=== PATIENT | male | born 1955 | race Caucasian/White ===

== ENCOUNTER 2018-08-08 14:59 | Emergency (ER) | payer OTHER ==
[~2018-08-08] VITALS: Ht 182.9 cm; Wt 88.5 kg
[2018-08-08 15:14] VITALS: BP 104/78
--- NOTE | 2018-08-08 15:35 | NUR ---
Patient discharged to home in stable condition. Written and verbal after care instructions given. Patient verbalizes understanding of instruction.
== END 2018-08-08 15:37 | disposition home or self-care (01) ==
LOC: ER 15:02
DX: T50.905A Adverse effect of unspecified drugs, medicaments and biological substances, initial encounter (principal); F41.9 Anxiety disorder, unspecified; F32.9 Major depressive disorder, single episode, unspecified; Z95.818 Presence of other cardiac implants and grafts; Z60.2 Problems related to living alone; Y92.89 Other specified places as the place of occurrence of the external cause
CPT/HCPCS: Z7502

== ENCOUNTER 2018-12-01 22:41 | Emergency (ER) | payer OTHER ==
[~2018-12-01] VITALS: Ht 175.3 cm; Wt 83.0 kg
--- NOTE | 2018-12-01 22:50 | NUR ---
BIB RA, AA/OX4 C/C SYNCOPAL EPISODE WHILE USING THE BATHROOM. PAIN ON TO LIP. SMALL LACERATION TO TOP LIP WITH MINOR SWELLING. ALL OTHER SKIN PINK, WARM, DRY. VSS. NAD. WILL CONTINUE TO MONITOR.
[2018-12-01] MEDS ORDERED: IV NS 0.9% 1,000 ML BAG IV ONE (23:00)
[2018-12-01 23:14] LABS: BASOPHILS % (AUTO) 0.2 % (0.0-2.0); EOSINOPHILS % (AUTO) 14.8 % (0.0-6.0); HEMATOCRIT 39 % (39-51); HEMOGLOBIN 13.7 g/dL (13.5-17.5); LYMPHOCYTES # (AUTO) 0.4 /CMM (0.8-4.8); MEAN CORPUSCULAR HGB CONC 35 g/dl (31.0-36.0); MEAN CORPUSCULAR VOLUME 90 fL (80-96); MONOCYTES # (AUTO) 0.4 /CMM (0.1-1.30); MONOCYTES % (AUTO) 7.8 % (2.0-12.0); NEUTROPHILS # (AUTO) 3.7 /CMM (1.8-8.9); NEUTROPHILS % (AUTO) 69.2 % (43.0-81.0); PLATELET COUNT (AUTO) 230 /CMM (150-450); RED BLOOD CELL COUNT(AUTO) 4.33 MIL/uL (4.5-6.0); WHITE BLOOD COUNT (AUTO) 5.3 K/uL (4.3-11.0)
[2018-12-01 23:24] LABS: CALCIUM, SERUM 8.8 mg/dL (8.5-10.1); CARBON DIOXIDE 24 mmol/L (21-32); CHLORIDE 101 mmol/L (98-107); CREATININE 1.4 mg/dL (0.6-1.3); GLUCOSE 128 mg/dL (74-106); POTASSIUM 3.7 mmol/L (3.5-5.1); SODIUM SERUM 135 mmol/L (136-145); UREA NITROGEN, BLOOD 9 mg/dL (7-18)
--- NOTE | 2018-12-01 23:36 | NUR ---
Patient is resting comfortably in bed with eyes closed. Easily aroused. VSS. NAD
[2018-12-01 23:40] LABS: ALANINE AMINOTRANSFERASE 21 U/L (12-78); ALBUMIN 3.3 g/dL (3.4-5.0); ALKALINE PHOSPHATASE 64 U/L (46-116); ASPARTATE AMINOTRANSFERASE 17 U/L (15-37); BILIRUBIN,DIRECT 0.3 mg/dL (0.0-0.2); BILIRUBIN,TOTAL 1.3 mg/dL (0.2-1.0); TOTAL PROTEIN, SERUM 6.5 g/dL (6.4-8.2)
--- NOTE | 2018-12-02 00:35 | NUR ---
PT SITTING UP DRINKING WATER. VSS. NAD.
[2018-12-02] MEDS ORDERED: ALPRAZOLAM 0.5 MG TABLET ONE (00:43)
[2018-12-02] MEDS ORDERED: IV NS 0.9% 1,000 ML BAG IV ONE (01:00)
[2018-12-02] MEDS ORDERED: ALPRAZOLAM 0.5 MG TABLET PO ONE (01:00)
--- NOTE | 2018-12-02 01:31 | NUR ---
AMBULATED TO BATHROOM WITH STABLE GAIT. VSS. NAD.
--- NOTE | 2018-12-02 02:37 | NUR ---
PT AMBULATED TO BATHROOM WITH STABLE GAIT. NAD. VSS.
--- NOTE | 2018-12-02 03:00 | NUR ---
PT ACCEPTED TO [facility] BY DHAVAL WHITE. # FOR REPORT [phone]. ROOM 202-B. PENDING TRANSPORT ETA.
--- NOTE | 2018-12-02 03:22 | NUR ---
REPORT GIVEN TO [facility] KELL DUMONT
[2018-12-02 03:29] VITALS: BP 110/70
--- NOTE | 2018-12-02 03:46 | NUR ---
REPORT GIVEN TO AMBULANCE COMPANY. PT LOADED ON AMB GURNEY AND TRANSPORTED TO [facility] WITH STABLE CONDITION. NAD. MENDES.
[2018-12-05] MEDS ORDERED: METO-356 PO (17:25)
[2018-12-05] MEDS ORDERED: ASPI-1395 PO (17:25)
== END 2018-12-02 03:51 | disposition short-term general hospital (02) ==
LOC: ER 22:45
DX: S00.83XA Contusion of other part of head, initial encounter (principal); C20 Malignant neoplasm of rectum; R55 Syncope and collapse; F41.9 Anxiety disorder, unspecified; F32.9 Major depressive disorder, single episode, unspecified; Z95.818 Presence of other cardiac implants and grafts; Z60.2 Problems related to living alone; X58.XXXA Exposure to other specified factors, initial encounter; Y93.89 Activity, other specified; Y92.89 Other specified places as the place of occurrence of the external cause; Y99.8 Other external cause status
CPT/HCPCS: 36415; 71045; 80048; 80076; 84484; 85025; 85730; 87081; 93005; 96360; 96361; 99285; J7030 ×2

== ENCOUNTER 2018-12-05 15:03 | Emergency (ER) | payer OTHER ==
[~2018-12-05] VITALS: Ht 175.3 cm; Wt 80.3 kg
--- NOTE | 2018-12-05 15:15 | NUR ---
RAMILA DE LA PAZ FRM HOME TO ER BED 10 C/O 2 DAYS OF DIFFUSE ABDOMINAL PAIN. HX OF COLON CA. 12/05 PAIN. PLACED ON MONITOR. AWAITING MD DRAPER.
--- NOTE | 2018-12-05 15:17 | NUR ---
DR MCGILL AT BEDSIDE FOR EVAL.
--- NOTE | 2018-12-05 15:24 | NUR ---
Jose palma in [facility] - 12/05/18 [address] MCGILL AT [facility].
[2018-12-05] MEDS ORDERED: HYDROMORPHONE INJ 2 MG/ML DISP.SYRIN IV ONE (15:30)
[2018-12-05] MEDS ORDERED: ONDANSETRON HCL/PF 4 MG/2 ML VIAL IVP ONE (15:30)
--- NOTE | 2018-12-05 15:30 | NUR ---
IV LINE STARTED BLOOD DRAWN AND SENT TO LAB.
[2018-12-05 15:36] LABS: BASOPHILS % (AUTO) 0.2 % (0.0-2.0); EOSINOPHILS % (AUTO) 1.6 % (0.0-6.0); HEMATOCRIT 35 % (39-51); HEMOGLOBIN 12.3 g/dL (13.5-17.5); LYMPHOCYTES # (AUTO) 0.5 /CMM (0.8-4.8); LYMPHOCYTES % (AUTO) 8.1 % (20.0-44.0); MEAN CORPUSCULAR HGB CONC 36 g/dl (31.0-36.0); MEAN CORPUSCULAR VOLUME 88 fL (80-96); MONOCYTES # (AUTO) 1.5 /CMM (0.1-1.30); MONOCYTES % (AUTO) 23.9 % (2.0-12.0); NEUTROPHILS # (AUTO) 4.3 /CMM (1.8-8.9); NEUTROPHILS % (AUTO) 66.2 % (43.0-81.0); PLATELET COUNT (AUTO) 218 /CMM (150-450); RED BLOOD CELL COUNT(AUTO) 3.93 MIL/uL (4.5-6.0); WHITE BLOOD COUNT (AUTO) 6.4 K/uL (4.3-11.0)
--- NOTE | 2018-12-05 15:44 | NUR ---
PT TO RADIOLOGY FOR ABDOMINAL CT SCAN VIA [facility].
[2018-12-05 15:49] LABS: ALBUMIN 2.6 g/dL (3.4-5.0); BILIRUBIN,DIRECT 0.4 mg/dL (0.0-0.2); BILIRUBIN,TOTAL 1.3 mg/dL (0.2-1.0); CALCIUM, SERUM 8.3 mg/dL (8.5-10.1); CREATININE 1.4 mg/dL (0.6-1.3); TOTAL PROTEIN, SERUM 5.9 g/dL (6.4-8.2)
[2018-12-05 15:51] LABS: POTASSIUM 2.6 mmol/L (3.5-5.1)
[2018-12-05] MEDS ORDERED: HYDROMORPHONE 1 MG/1 ML DISP.SYRIN ONE ×2 (15:53→17:57)
[2018-12-05] MEDS ORDERED: ONDANSETRON HCL/PF 4 MG/2 ML VIAL ONE (15:53)
[2018-12-05] MEDS ORDERED: IV NS 0.9% 1,000 ML BAG IV ONE (16:00)
[2018-12-05] MEDS ORDERED: POTASSIUM CHLORIDE 20 MEQ TAB.PRT.SR PO ONE ×2 (16:00→16:46)
[2018-12-05] MEDS ORDERED: POTASSIUM CHLORIDE 10 MEQ/50 ML PREMIXED IVPB FOR PERIPHERAL LINE IV ONE (16:00)
[2018-12-05] MEDS ORDERED: LIDOCAINE 2% JEL UROJET 10 ML MM ONE (16:07)
[2018-12-05 16:34] LABS: APPEARANCE,URINE Clear (CLEAR); BILIRUBIN,URINE Negative (NEGATIVE); BLOOD, URINE Negative Ery/uL (NEGATIVE); COLOR,URINE Dark (YELLOW); KETONES,URINE Negative (NEGATIVE); LEUKOCYTE ESTERASE ,URINE Negative (NEGATIVE); NITRITE, URINE Negative (NEGATIVE); PROTEIN,URINE Trace mg/dl (NEGATIVE); UGLUCOSE Negative (NEGATIVE); UROBILINOGEN,URINE 0.2 EU/dL (0.2)
[2018-12-05] MEDS ORDERED: POTASSIUM CL. PREMIX PERIPHER. 50 ML ONE (16:45)
[2018-12-05] MEDS ORDERED: TAMSULOSIN 0.4 MG CAP.SR.24H PO ONE (17:00)
[2018-12-05] MEDS ORDERED: HYDROMORPHONE 1 MG/1 ML DISP.SYRIN IV ONE (17:00)
[2018-12-05] MEDS ORDERED: PIPERACILLIN /TAZOBACTAM 3.375 G in IV D5W 50 ML IV ONE (17:00)
[2018-12-05 17:02] LABS: BACTERIA,URINE Rare /HPF (None Seen); RBC,URINE NONE SEEN /HPF (0-2); SQUAMOUS EPITHELIAL CELL,UR Rare /HPF (None Seen)
[2018-12-05 17:03] LABS: WBC,URINE 0-3 /HPF (0-3)
[2018-12-05] MEDS ORDERED: TAMSULOSIN 0.4 MG CAP.SR.24H ONE (17:07)
[2018-12-05 17:17] LABS: BAND % (MANUAL) 11 % (0.0-5.0); EOSINOPHILS % (MANUAL) 4 % (0-4); LYMPHOCYTES % (MANUAL) 1 % (16-48); MONOCYTES % (MANUAL) 13 % (0-11.0); NEUTROPHILS % (MANUAL) 71 (42-76)
[2018-12-05] MEDS ORDERED: PROC10TA29 PO (17:25)
[2018-12-05] MEDS ORDERED: ALPR0.5T8 PO (17:25)
[2018-12-05] MEDS ORDERED: FAMO20TA8 PO (17:25)
[2018-12-05] MEDS ORDERED: METO25TA4 PO (17:25)
[2018-12-05] MEDS ORDERED: ASPI-1498 PO (17:25)
[2018-12-05] MEDS ORDERED: RAMI5CAP66 PO (17:25)
[2018-12-05] MEDS ORDERED: FLUO40CA49 PO (17:25)
[2018-12-05] MEDS ORDERED: ONDA4TAB10 PO (17:25)
[2018-12-05] MEDS ORDERED: FERR325T23 PO (17:25)
[2018-12-05] MEDS ORDERED: CAPE500T PO (17:25)
[2018-12-05] MEDS ORDERED: ATOR10TA PO (17:25)
--- NOTE | 2018-12-05 19:03 | NUR ---
RESTING IN BED. KEPT COMFORTABLE. ON MONITOR. STABLE VITALS.
--- NOTE | 2018-12-05 19:10 | NUR ---
REC'D REPORT FROM KELL CARLIN FOR HUMAIRA. PT RESTING COMFORTABLY IN BED. VITAL SIGNS STABLE. NO ACUTE DISTRESS NOTED AT THIS TIME. STILL PENDING ACCPETING INFORMATION FROM [facility].
--- NOTE | 2018-12-05 19:10 | NUR ---
REPORT TO ORDER ENTRY ADMINISTRATOR NURSE CALVIN FOR HUMAIRA.
--- NOTE | 2018-12-05 20:23 | NUR ---
PT WILL BE TRANSFERRED TO [facility] PER INSURANCE REQUEST ROOM ASSIGNMENT: [id number] NUMBER FOR REPORT: [phone] NURSE FOR REPORT: KELL RANDLE
--- NOTE | 2018-12-05 20:33 | NUR ---
GAVE REPORT TO KELL RANDLE FOR HUMAIRA
--- NOTE | 2018-12-05 20:37 | NUR ---
[facility] ETA 30 MIN
--- NOTE | 2018-12-05 21:15 | NUR ---
GAVE REPORT TO [facility] FOR TRANSPORTATION HUMAIRA
[2018-12-05 21:35] VITALS: BP 95/66
== END 2018-12-05 21:37 | disposition short-term general hospital (02) ==
LOC: ER 15:06
DX: K52.9 Noninfective gastroenteritis and colitis, unspecified (principal); R33.9 Retention of urine, unspecified; E87.6 Hypokalemia; F41.9 Anxiety disorder, unspecified; F32.9 Major depressive disorder, single episode, unspecified; Z95.818 Presence of other cardiac implants and grafts; Z85.048 Personal history of other malignant neoplasm of rectum, rectosigmoid junction, and anus; Z60.2 Problems related to living alone; Z79.82 Long term (current) use of aspirin; Z79.899 Other long term (current) drug therapy
CPT/HCPCS: 36415; 51702; 71045; 74176; 80048; 80076; 81001; 83690; 85025; 87081; 96361; 96365; 96367; 96375; 96376; 99285; J1170 ×2; J2405; J2543; J3480; J3490; J7030; J7060; 81000-TC

== ENCOUNTER 2018-12-24 09:27 | Emergency (ER) | payer OTHER ==
[~2018-12-24] VITALS: Ht 175.3 cm; Wt 84.4 kg
[~2018-12-24 09:27] MED LIST: ALPR0.5T8 PO; ASPI-1395 PO; ATOR10TA PO; CAPE500T PO; FAMO20TA8 PO; FERR325T23 PO; FLUO40CA49 PO; METO-356 PO; ONDA4TAB10 PO; PROC10TA29 PO; RAMI5CAP66 PO
--- NOTE | 2018-12-24 09:40 | NUR ---
BRAIN [facility] HOME C/O DYSURIA, URGENCY, DIARRHEA ON AND OFF X COUPLE DAYS. PATIENT A/OX4, BREATHING EVEN AND UNLABORED, NO SOB NOTED, NEEDS ATTENDED, CHANGED INTO GOWN, ATTACHED TO THE DEPARTMENT STORE SALESPERSON.
[2018-12-24] MEDS ORDERED: MORPHINE SULFATE INJ 2 MG/ML DISP.SYRIN IV ONE ×2 (10:00→12:30)
[2018-12-24 10:18] LABS: BASOPHILS % (AUTO) 0.7 % (0.0-2.0); EOSINOPHILS % (AUTO) 1.2 % (0.0-6.0); HEMATOCRIT 37 % (39-51); HEMOGLOBIN 12.5 g/dL (13.5-17.5); LYMPHOCYTES # (AUTO) 0.6 /CMM (0.8-4.8); LYMPHOCYTES % (AUTO) 10.7 % (20.0-44.0); MEAN CORPUSCULAR HGB CONC 34 g/dl (31.0-36.0); MEAN CORPUSCULAR VOLUME 93 fL (80-96); MONOCYTES # (AUTO) 0.8 /CMM (0.1-1.30); MONOCYTES % (AUTO) 14.9 % (2.0-12.0); NEUTROPHILS % (AUTO) 72.5 % (43.0-81.0); PLATELET COUNT (AUTO) 306 /CMM (150-450); RED BLOOD CELL COUNT(AUTO) 3.97 MIL/uL (4.5-6.0); WHITE BLOOD COUNT (AUTO) 5.5 K/uL (4.3-11.0)
[2018-12-24] MEDS ORDERED: MORPHINE SULFATE INJ 4 MG/ML DISP.SYRIN ONE ×2 (10:20→12:01)
[2018-12-24 10:30] LABS: ALANINE AMINOTRANSFERASE 16 U/L (12-78); ALBUMIN 3.1 g/dL (3.4-5.0); ALKALINE PHOSPHATASE 91 U/L (46-116); ASPARTATE AMINOTRANSFERASE 18 U/L (15-37); BILIRUBIN,DIRECT 0.2 mg/dL (0.0-0.2); BILIRUBIN,TOTAL 1.2 mg/dL (0.2-1.0); CALCIUM, SERUM 8.9 mg/dL (8.5-10.1); CARBON DIOXIDE 26 mmol/L (21-32); CHLORIDE 103 mmol/L (98-107); CREATININE 1.4 mg/dL (0.6-1.3); GLUCOSE 99 mg/dL (74-106); LIPASE 200 U/L (73-393); POTASSIUM 4.1 mmol/L (3.5-5.1); SODIUM SERUM 138 mmol/L (136-145); TOTAL PROTEIN, SERUM 6.6 g/dL (6.4-8.2); UREA NITROGEN, BLOOD 9 mg/dL (7-18)
[2018-12-24 10:35] LABS: APPEARANCE,URINE Clear (CLEAR); BILIRUBIN,URINE Negative (NEGATIVE); BLOOD, URINE Trace-intact Ery/uL (NEGATIVE); COLOR,URINE Yellow (YELLOW); KETONES,URINE Negative (NEGATIVE); LEUKOCYTE ESTERASE ,URINE Negative (NEGATIVE); NITRITE, URINE Negative (NEGATIVE); PROTEIN,URINE Negative (NEGATIVE); UGLUCOSE Negative (NEGATIVE); UROBILINOGEN,URINE 0.2 EU/dL (0.2)
[2018-12-24 10:47] LABS: BACTERIA,URINE None seen /HPF (None Seen); SQUAMOUS EPITHELIAL CELL,UR Rare /HPF (None Seen); WBC,URINE 0-2 /HPF (0-3)
[2018-12-24] MEDS ORDERED: IV NS 0.9% 250 ML IV ONE (10:53)
[2018-12-24] MEDS ORDERED: IOHEXOL-300 100 ML VIAL IV ONE (10:53)
[2018-12-24] MEDS ORDERED: CT SWABBABLE VALVE TRANS SET 1 EA INFUS.SET MC ONE (10:54)
[2018-12-24] MEDS ORDERED: IV NS 0.9% 1,000 ML BAG IV ONE (11:00)
--- NOTE | 2018-12-24 12:08 | NUR ---
REFUSES PEOPLES CATHETER, EXPLAINED RISKS AND BENEFITS, STILL REFUSED.
--- NOTE | 2018-12-24 12:09 | NUR ---
DR. GAMBOA MADE AWARE OF PATIENTS REFUSAL FOR INSERTION OF PEOPLES CATHETER.
[2018-12-24] MEDS ORDERED: LIDOCAINE 2% JEL UROJET 10 ML MM ONE ×3 (12:26→12:30)
--- NOTE | 2018-12-24 13:03 | NUR ---
PT ACCEPTED AT [facility], WAITING FOR CALL FROM FOR TRANSFER INFO
--- NOTE | 2018-12-24 13:34 | NUR ---
RECIEVED ROOM 310-B AT [facility]. NUMBER FOR REPORT PETROS
--- NOTE | 2018-12-24 13:43 | NUR ---
REPORT GIVEN TO RAGHAVENDRA CASTORENA AT [facility].
--- NOTE | 2018-12-24 13:51 | NUR ---
[facility] ETA 40-60 MIN ([id number]
[2018-12-24 15:00] VITALS: BP 127/80
--- NOTE | 2018-12-24 15:18 | NUR ---
REPORT GIVEN TO CABLE PULLER. PATIENT IN STABLE CONDITION. STILL REFUSED TO HAVE PEOPLES CATHETER INSERTION. NEEDS ATTENDED. NO DISTRESS NOTED. PATIENT WILL BE TRANSFERRED TO [facility].
== END 2018-12-24 15:45 | disposition short-term general hospital (02) ==
LOC: ER 09:29
DX: R33.9 Retention of urine, unspecified (principal); K62.89 Other specified diseases of anus and rectum; F41.9 Anxiety disorder, unspecified; F32.9 Major depressive disorder, single episode, unspecified; Z95.818 Presence of other cardiac implants and grafts; Z60.2 Problems related to living alone; Z79.899 Other long term (current) drug therapy; Z79.82 Long term (current) use of aspirin
CPT/HCPCS: 36415; 74177; 80048; 80076; 81001; 83605 ×2; 83690; 85025; 87081; 87086; 96374; 96376; 99285; J2270 ×2; J3490 ×2; J7030; J7050; Q9967; 81000-TC

== ENCOUNTER 2018-12-28 19:41 | Emergency (ER) | payer OTHER ==
[~2018-12-28] VITALS: Ht 175.3 cm; Wt 81.0 kg
[2018-12-28] MEDS ORDERED: IV NS 0.9% 500 ML BAG IV ONE (20:00)
[2018-12-28 20:08] LABS: BASOPHILS # (AUTO) 0.1 /CMM (0.0-0.2); BASOPHILS % (AUTO) 1.3 % (0.0-2.0); EOSINOPHILS % (AUTO) 7.8 % (0.0-6.0); HEMATOCRIT 35 % (39-51); HEMOGLOBIN 11.8 g/dL (13.5-17.5); LYMPHOCYTES % (AUTO) 17.6 % (20.0-44.0); MEAN CORPUSCULAR HGB CONC 34 g/dl (31.0-36.0); MEAN CORPUSCULAR VOLUME 93 fL (80-96); MONOCYTES % (AUTO) 16.8 % (2.0-12.0); NEUTROPHILS # (AUTO) 3.2 /CMM (1.8-8.9); NEUTROPHILS % (AUTO) 56.5 % (43.0-81.0); PLATELET COUNT (AUTO) 243 /CMM (150-450); RED BLOOD CELL COUNT(AUTO) 3.78 MIL/uL (4.5-6.0); WHITE BLOOD COUNT (AUTO) 5.7 K/uL (4.3-11.0)
[2018-12-28] MEDS ORDERED: MORPHINE SULFATE INJ 4 MG/ML DISP.SYRIN ONE (20:10)
--- NOTE | 2018-12-28 20:16 | NUR ---
BIBRA60 FROM HOME C/O L SIDE CHEST PAIN X30 MIN CASHIER PAYMENTS RECEIVED. +SOB PER RA, TOOK 1 NITRO SL AT HOME, NO RELIEF. REC'D 324MG ASP EN ROUTE. PT AAOX4, VSS. DENIES DIZZINESS, N/V, WEAKNESS @ THIS TIME. PT SEEN & EVAL'D BY DR. MORENO. PLACED ON JR. JAVA DEVELOPER, SR. MEDICATED ORDERED, PT BEVERLEY WELL . WILL CONT TO MONITOR.
[2018-12-28 20:17] LABS: CALCIUM, SERUM 8.6 mg/dL (8.5-10.1); CARBON DIOXIDE 25 mmol/L (21-32); CHLORIDE 106 mmol/L (98-107); CREATININE 1.3 mg/dL (0.6-1.3); GLUCOSE 111 mg/dL (74-106); POTASSIUM 3.8 mmol/L (3.5-5.1); SODIUM SERUM 138 mmol/L (136-145); UREA NITROGEN, BLOOD 9 mg/dL (7-18)
[2018-12-28] MEDS ORDERED: MORPHINE SULFATE INJ 2 MG/ML DISP.SYRIN IV ONE (20:30)
[2018-12-28 21:40] LABS: EOSINOPHILS % (MANUAL) 6 % (0-4); LYMPHOCYTES % (MANUAL) 11 % (16-48); MONOCYTES % (MANUAL) 13 % (0-11.0); NEUTROPHILS % (MANUAL) 66 (42-76); REACTIVE LYMPHOCYTES 4 % (0-0)
[2018-12-28 22:40] VITALS: BP 94/68
--- NOTE | 2018-12-28 22:40 | NUR ---
Patient discharged to home in stable condition. Written and verbal after care instructions given. Patient verbalizes understanding of instruction. IV removed. Catheter intact and site benign. Pressure and 4x4 applied to site. No bleeding noted.
== END 2018-12-28 22:41 | disposition home or self-care (01) ==
LOC: ER 19:44
DX: R07.89 Other chest pain (principal); F41.9 Anxiety disorder, unspecified; F32.9 Major depressive disorder, single episode, unspecified; Z60.2 Problems related to living alone; Z85.048 Personal history of other malignant neoplasm of rectum, rectosigmoid junction, and anus; Z95.818 Presence of other cardiac implants and grafts; Z79.82 Long term (current) use of aspirin; Z79.899 Other long term (current) drug therapy
CPT/HCPCS: 36415; 71045; 80048; 83690; 84484; 85025; 93005; 96374; 99284; J2270; J7040

== ENCOUNTER 2019-04-24 04:06 | Emergency (ER) | payer OTHER ==
[~2019-04-24] VITALS: Ht 182.9 cm; Wt 88.5 kg
[~2019-04-24 04:06] MED LIST changes: -ASPI-1395 PO; +ASPI-1498 PO; -METO-356 PO; +METO25TA4 PO; +ONDA-97 PO; -ONDA4TAB10 PO
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
[2019-04-24] MEDS ORDERED: MORPHINE SULFATE INJ 4 MG/ML DISP.SYRIN ONE (04:19)
[2019-04-24] MEDS ORDERED: ONDANSETRON HCL/PF 4 MG/2 ML VIAL ONE (04:19)
[2019-04-24] MEDS ORDERED: MORPHINE SULFATE INJ 2 MG/ML DISP.SYRIN IV ONE (04:30)
[2019-04-24] MEDS ORDERED: ONDANSETRON HCL/PF 4 MG/2 ML VIAL IVP ONE (04:30)
[2019-04-24] MEDS ORDERED: IV NS 0.9% 500 ML BAG IV ONE (04:30)
[2019-04-24] MEDS ORDERED: HYDROMORPHONE 1 MG/1 ML DISP.SYRIN ONE (04:34)
[2019-04-24 04:45] LABS: BASOPHILS # (AUTO) 0.1 /CMM (0.0-0.2); BASOPHILS % (AUTO) 0.5 % (0.0-2.0); EOSINOPHILS % (AUTO) 0.7 % (0.0-6.0); HEMATOCRIT 40 % (39-51); HEMOGLOBIN 13.6 g/dL (13.5-17.5); LYMPHOCYTES # (AUTO) 1.1 /CMM (0.8-4.8); LYMPHOCYTES % (AUTO) 9.6 % (20.0-44.0); MEAN CORPUSCULAR HGB CONC 34 g/dl (31.0-36.0); MEAN CORPUSCULAR VOLUME 84 fL (80-96); MONOCYTES # (AUTO) 1.2 /CMM (0.1-1.30); MONOCYTES % (AUTO) 10.2 % (2.0-12.0); NEUTROPHILS # (AUTO) 9.3 /CMM (1.8-8.9); PLATELET COUNT (AUTO) 423 /CMM (150-450); RED BLOOD CELL COUNT(AUTO) 4.76 MIL/uL (4.5-6.0); WHITE BLOOD COUNT (AUTO) 11.8 K/uL (4.3-11.0)
--- NOTE | 2019-04-24 04:48 | NUR ---
PT WAS PICKED UP FOR CT
[2019-04-24 04:55] LABS: CALCIUM, SERUM 9.2 mg/dL (8.5-10.1); CREATININE 1.1 mg/dL (0.6-1.3); POTASSIUM 3.9 mmol/L (3.5-5.1)
[2019-04-24] MEDS ORDERED: HYDROMORPHONE INJ 0.5 MG/0.5 ML SYRINGE IV ONE (05:00)
[2019-04-24 05:01] LABS: ALBUMIN 3.3 g/dL (3.4-5.0); BILIRUBIN,DIRECT 0.1 mg/dL (0.0-0.2); BILIRUBIN,TOTAL 0.6 mg/dL (0.2-1.0); TOTAL PROTEIN, SERUM 7.9 g/dL (6.4-8.2)
[2019-04-24] MEDS ORDERED: PIPERACILLIN /TAZOBACTAM 3.375 G in IV D5W 50 ML IV ONE (05:30)
[2019-04-24] MEDS ORDERED: VANCOMYCIN 1 GM in IV D5W 250 ML IV ONE (05:30)
--- NOTE | 2019-04-24 05:33 | NUR ---
SPOKE WITH MARGE ENRIQUEZ [facility] REGARDING TRANSFER. FACE SHEET FAXED PER REQUEST
--- NOTE | 2019-04-24 05:34 | NUR ---
AT THE BED SIDE
[2019-04-24] MEDS ORDERED: VANCOMYCIN 1 GM VIAL ONE (05:38)
[2019-04-24] MEDS ORDERED: PIPERACILLIN /TAZOBACTAM 3.375 G VIAL IV ONE (05:38)
--- NOTE | 2019-04-24 05:42 | NUR ---
END TIME FOR ZOSYN: 611 RAC 20G
[2019-04-24] MEDS ORDERED: HYDROMORPHONE INJ 2 MG/ML DISP.SYRIN ONE (05:46)
[2019-04-24] MEDS ORDERED: HYDROMORPHONE INJ 2 MG/ML DISP.SYRIN IV ONE (06:00)
--- NOTE | 2019-04-24 06:00 | NUR ---
X RAY AT THE BED SIDE
--- NOTE | 2019-04-24 07:00 | NUR ---
Patient is resting comfortably in bed with eyes closed. Easily aroused. VSS. No s/s or c/o pain at this time. will cont to monitor .
--- NOTE | 2019-04-24 07:25 | NUR ---
ASSESSED PT ON BED AWAKE, AAOX4, NOT IN RESPIRATORY DISTRESS, V/S STABLE, KEPT RESTED AND COMFORTABLE, AWAITING SPRING REPAIRER HELPER HAND FOR PT TRANSFER INFO.
--- NOTE | 2019-04-24 07:52 | NUR ---
URINAL GIVEN BUT UNABLE TO PROVIDE URINE SPECIMEN THIS TIME.
[2019-04-24 08:24] LABS: APPEARANCE,URINE Clear (CLEAR); BILIRUBIN,URINE Negative (NEGATIVE); BLOOD, URINE Negative Ery/uL (NEGATIVE); COLOR,URINE Yellow (YELLOW); KETONES,URINE 40 (NEGATIVE); LEUKOCYTE ESTERASE ,URINE Negative (NEGATIVE); NITRITE, URINE Negative (NEGATIVE); PH,URINE 5.5 (5.0-8.0); PROTEIN,URINE Negative (NEGATIVE); UGLUCOSE Negative (NEGATIVE); UROBILINOGEN,URINE 0.2 EU/dL (0.2)
[2019-04-24 08:31] LABS: BACTERIA,URINE Rare /HPF (None Seen); RBC,URINE 0-2 /HPF (0-2); SQUAMOUS EPITHELIAL CELL,UR Rare /HPF (None Seen); WBC,URINE 0-2 /HPF (0-3)
--- NOTE | 2019-04-24 09:25 | NUR ---
CALLED ADMITTING TO FOLLOW UP INSURANCE FOR DISPOSITION.
--- NOTE | 2019-04-24 12:11 | NUR ---
PER ADMITTING WAITING 1 HOUR FOR REJI CALVERT CM TO RESPOND
--- NOTE | 2019-04-24 12:53 | NUR ---
PER DR FALL PT ACCEPTED BY DR DEBBIE CALVERT Addendum: 04/24/19 at 1301 by CATARINA ACCEPTED BY DR HOLLI CALVERT
--- NOTE | 2019-04-24 16:08 | NUR ---
CALLED DR GILL, LEFT VOICEMAIL
--- NOTE | 2019-04-24 16:40 | NUR ---
ER PHLEB AT BEDSIDE FOR BLOOD DRAW.
--- NOTE | 2019-04-24 16:43 | NUR ---
SPOKE TO STEPHANIE GALLOWAY REGARDING PLAN TO ADMIT PT, SHE WILL CALL DR GILL AND FOLLOW UP
[2019-04-24 16:45] LABS: BASOPHILS # (AUTO) 0.1 /CMM (0.0-0.2); BASOPHILS % (AUTO) 0.9 % (0.0-2.0); EOSINOPHILS % (AUTO) 0.7 % (0.0-6.0); HEMATOCRIT 39 % (39-51); LYMPHOCYTES # (AUTO) 0.7 /CMM (0.8-4.8); LYMPHOCYTES % (AUTO) 7.9 % (20.0-44.0); MEAN CORPUSCULAR HGB CONC 33 g/dl (31.0-36.0); MEAN CORPUSCULAR VOLUME 85 fL (80-96); MONOCYTES # (AUTO) 1.1 /CMM (0.1-1.30); MONOCYTES % (AUTO) 11.7 % (2.0-12.0); NEUTROPHILS # (AUTO) 7.2 /CMM (1.8-8.9); NEUTROPHILS % (AUTO) 78.8 % (43.0-81.0); PLATELET COUNT (AUTO) 379 /CMM (150-450); RED BLOOD CELL COUNT(AUTO) 4.63 MIL/uL (4.5-6.0); WHITE BLOOD COUNT (AUTO) 9.2 K/uL (4.3-11.0)
[2019-04-24] MEDS ORDERED: oxyCODONE/APAP (5/325 MG) 1 UDTAB TABLET ONE (16:45)
[2019-04-24] MEDS ORDERED: LORAZEPAM INJ 2 MG/ML VIAL ONE (16:45)
[2019-04-24 16:58] LABS: ALBUMIN 2.9 g/dL (3.4-5.0); BILIRUBIN,DIRECT 0.2 mg/dL (0.0-0.2); BILIRUBIN,TOTAL 0.7 mg/dL (0.2-1.0); CALCIUM, SERUM 8.8 mg/dL (8.5-10.1); TOTAL PROTEIN, SERUM 7.4 g/dL (6.4-8.2)
[2019-04-24] MEDS ORDERED: IV NS 0.9% 1,000 ML BAG IV ONE (17:00)
[2019-04-24] MEDS ORDERED: oxyCODONE/APAP (5/325 MG) 1 UDTAB TABLET PO ONE (17:00)
[2019-04-24] MEDS ORDERED: LORAZEPAM INJ 2 MG/ML VIAL IV ONE (17:00)
--- NOTE | 2019-04-24 17:39 | NUR ---
IV removed. Catheter intact and site benign. Pressure and 4x4 applied to site. No bleeding noted. Patient discharged to home in stable condition. Written and verbal after care instructions given. Patient verbalizes understanding of instruction.
[2019-04-24 17:41] VITALS: BP 124/77
== END 2019-04-24 17:45 | disposition home or self-care (01) ==
LOC: ER 04:08
DX: R10.84 Generalized abdominal pain (principal); Z95.5 Presence of coronary angioplasty implant and graft; Z85.048 Personal history of other malignant neoplasm of rectum, rectosigmoid junction, and anus; Z90.49 Acquired absence of other specified parts of digestive tract; Z60.2 Problems related to living alone; Z79.82 Long term (current) use of aspirin; Z79.899 Other long term (current) drug therapy
CPT/HCPCS: 36415; 74176; 80048 ×2; 80076 ×2; 81001; 83605; 83690 ×2; 85025 ×2; 87040 ×2; 96365; 96366; 96368; 96375; 96376; 99285; J1170 ×2; J2060; J2270; J2405; J2543 ×2; J3370; J7030; J7040; J7060; 81000-TC

== ENCOUNTER 2019-06-12 20:28 | Emergency (ER) | payer OTHER ==
[~2019-06-12] VITALS: Ht 182.9 cm; Wt 79.4 kg
[~2019-06-12 20:28] MED LIST changes: -ATOR10TA PO; -CAPE500T PO; -FAMO20TA8 PO
--- NOTE | 2019-06-12 20:32 | NUR ---
PT CAME TO THE ED C/O NAUSEA AND VOMITING X 1 DAY AND R LEG PAIN. RR EVEN AND UNLABORED ON RA W NAD NOTED. PT STATES HIS CHEMOTHERAPY STOPPED TODAY. PT CONNECTED TO THE MONITOR AND POX.
[2019-06-12] MEDS ORDERED: ONDANSETRON HCL/PF 4 MG/2 ML VIAL ONE ×2 (21:18→22:25)
[2019-06-12 21:29] LABS: BASOPHILS # (AUTO) 0.1 /CMM (0.0-0.2); BASOPHILS % (AUTO) 1.5 % (0.0-2.0); HEMATOCRIT 41 % (39-51); HEMOGLOBIN 13.5 g/dL (13.5-17.5); LYMPHOCYTES # (AUTO) 0.8 /CMM (0.8-4.8); LYMPHOCYTES % (AUTO) 16.1 % (20.0-44.0); MEAN CORPUSCULAR HGB CONC 33 g/dl (31.0-36.0); MEAN CORPUSCULAR VOLUME 83 fL (80-96); MONOCYTES # (AUTO) 0.6 /CMM (0.1-1.30); MONOCYTES % (AUTO) 10.9 % (2.0-12.0); NEUTROPHILS # (AUTO) 3.7 /CMM (1.8-8.9); NEUTROPHILS % (AUTO) 70.5 % (43.0-81.0); PLATELET COUNT (AUTO) 233 /CMM (150-450); RED BLOOD CELL COUNT(AUTO) 4.91 MIL/uL (4.5-6.0); WHITE BLOOD COUNT (AUTO) 5.3 K/uL (4.3-11.0)
[2019-06-12] MEDS ORDERED: IV NS 0.9% 1,000 ML BAG IV ONE (21:30)
[2019-06-12] MEDS ORDERED: ONDANSETRON HCL/PF 4 MG/2 ML VIAL IVP ONE (21:30)
[2019-06-12 21:35] LABS: CALCIUM, SERUM 9.3 mg/dL (8.5-10.1); CARBON DIOXIDE 26 mmol/L (21-32); CHLORIDE 103 mmol/L (98-107); CREATININE 1.1 mg/dL (0.6-1.3); GLUCOSE 107 mg/dL (74-106); POTASSIUM 4.2 mmol/L (3.5-5.1); SODIUM SERUM 139 mmol/L (136-145); UREA NITROGEN, BLOOD 17 mg/dL (7-18)
[2019-06-12 21:41] LABS: ALANINE AMINOTRANSFERASE 70 U/L (12-78); ALBUMIN 3.5 g/dL (3.4-5.0); ALKALINE PHOSPHATASE 104 U/L (46-116); ASPARTATE AMINOTRANSFERASE 44 U/L (15-37); BILIRUBIN,DIRECT 0.2 mg/dL (0.0-0.2); BILIRUBIN,TOTAL 0.9 mg/dL (0.2-1.0); LIPASE 239 U/L (73-393); TOTAL PROTEIN, SERUM 7.7 g/dL (6.4-8.2)
[2019-06-12] MEDS ORDERED: ONDANSETRON HCL/PF 4 MG/2 ML VIAL IV ONE (22:30)
--- NOTE | 2019-06-12 23:17 | NUR ---
[facility] ETA [id number]
--- NOTE | 2019-06-12 23:37 | NUR ---
REPORT GIVEN TO EMS.
--- NOTE | 2019-06-12 23:37 | NUR ---
Patient discharged to home in stable condition via ambulance. Written and verbal after care instructions given. Patient verbalizes understanding of instruction.
[2019-06-12 23:38] VITALS: BP 121/74
== END 2019-06-12 23:38 | disposition home or self-care (01) ==
LOC: ER 20:28
DX: R11.2 Nausea with vomiting, unspecified (principal); T45.1X5A Adverse effect of antineoplastic and immunosuppressive drugs, initial encounter; F41.9 Anxiety disorder, unspecified; F32.9 Major depressive disorder, single episode, unspecified; Z98.890 Other specified postprocedural states; Z85.048 Personal history of other malignant neoplasm of rectum, rectosigmoid junction, and anus; Z60.2 Problems related to living alone; Z79.82 Long term (current) use of aspirin; Z79.899 Other long term (current) drug therapy; Y92.89 Other specified places as the place of occurrence of the external cause
CPT/HCPCS: 36415; 80048; 80076; 83605; 83690; 84484; 85025; 93005; 96361; 96374; 96376; 99284; J2405 ×2; J7030

== ENCOUNTER 2019-08-25 10:30 | Inpatient (IN) | payer OTHER ==
[~2019-08-25] VITALS: Ht 182.9 cm; Wt 78.0 kg
--- NOTE | 2019-08-25 10:35 | NUR ---
PT BIBRA FROM HOME TO ER BED 06. PT IS C/O WEAKNESS, DIARRHEA WORST FOR THE PAST COUPLE OF DAYS. PT STATES BEEN GOING ON FOR THE PAST 3 WEEKS S/P ILEOSTOMY REVERSAL. PT STATES SOB UPON EXERSION SINCE LAST NIGHT. DENIES PAIN. PT IS AAO, PLACED ON MONITOR. STABLE VITALS. AWAITING MD DRAPER.
--- NOTE | 2019-08-25 10:44 | NUR ---
DR MCBRIDE AT BEDSIDE FOR EVAL.
[2019-08-25] MEDS ORDERED: IV NS 0.9% 500 ML BAG IV ONE (11:00)
--- NOTE | 2019-08-25 11:05 | NUR ---
COMPUTER HARDWARE TECHNICIAN AT BEDSIDE FOR BLOOD DRAW.
--- NOTE | 2019-08-25 11:10 | NUR ---
renee at bedside for x-ray
[2019-08-25 11:14] LABS: BASOPHILS % (AUTO) 0.5 % (0.0-2.0); EOSINOPHILS % (AUTO) 0.3 % (0.0-6.0); HEMATOCRIT 36 % (39-51); HEMOGLOBIN 11.6 g/dL (13.5-17.5); LYMPHOCYTES # (AUTO) 0.8 /CMM (0.8-4.8); MEAN CORPUSCULAR HGB CONC 32 g/dl (31.0-36.0); MEAN CORPUSCULAR VOLUME 83 fL (80-96); MONOCYTES % (AUTO) 9.4 % (2.0-12.0); NEUTROPHILS # (AUTO) 8.3 /CMM (1.8-8.9); NEUTROPHILS % (AUTO) 81.8 % (43.0-81.0); PLATELET COUNT (AUTO) 402 /CMM (150-450); RED BLOOD CELL COUNT(AUTO) 4.33 MIL/uL (4.5-6.0); WHITE BLOOD COUNT (AUTO) 10.2 K/uL (4.3-11.0)
--- NOTE | 2019-08-25 11:37 | NUR ---
wheeled patient via rney for ct scan
[2019-08-25 11:40] LABS: ALANINE AMINOTRANSFERASE 12 U/L (12-78); ALBUMIN 2.6 g/dL (3.4-5.0); ALKALINE PHOSPHATASE 73 U/L (46-116); ASPARTATE AMINOTRANSFERASE 13 U/L (15-37); B-TYPE NATRIURETIC PEPTIDE 105 PG/ML (0-125); BILIRUBIN,DIRECT 0.1 mg/dL (0.0-0.2); BILIRUBIN,TOTAL 0.4 mg/dL (0.2-1.0); CARBON DIOXIDE 32 mmol/L (21-32); CHLORIDE 102 mmol/L (98-107); CREATININE 1.2 mg/dL (0.6-1.3); GLUCOSE 113 mg/dL (74-106); SODIUM SERUM 140 mmol/L (136-145); TOTAL PROTEIN, SERUM 6.1 g/dL (6.4-8.2); UREA NITROGEN, BLOOD 6 mg/dL (7-18)
[2019-08-25 11:42] LABS: POTASSIUM 2.2 mmol/L (3.5-5.1)
[2019-08-25] MEDS ORDERED: POTASSIUM CHLORIDE ONE (11:58)
[2019-08-25] MEDS: POTASSIUM CL. PREMIX PERIPHER. 50 ML IV SCH ×10 (12:00→18:14)
--- NOTE | 2019-08-25 12:04 | NUR ---
MOVE SHEET SUBMITTED TO ADMITTING AND CALLED FOR TELE BED WITH JOSEPH TROTTERID-19.
[2019-08-25] MEDS ORDERED: VANCOMYCIN 1 GM in IV D5W 250 ML IV ONE (12:30)
[2019-08-25] MEDS ORDERED: FLAGYL/NS RTU 500 MG/100 ML PIGGYBACK IV ONE (12:30)
[2019-08-25] MEDS ORDERED: AMLO5TAB9 MT (12:42)
[2019-08-25] MEDS ORDERED: ATOR20TA PO (12:42)
--- NOTE | 2019-08-25 12:47 | NUR ---
ROOM ASSIGNMENT: [id number] TELE
[2019-08-25] MEDS ORDERED: LOPERAMIDE HCL (2 MG CAP) 2 MG CAPSULE ONE (12:58)
[2019-08-25] MEDS ORDERED: LOPERAMIDE HCL (2 MG CAP) 2 MG CAPSULE PO ONE (13:00)
[2019-08-25] MEDS ORDERED: IV NS 0.9% 1,000 ML IV PRN (13:01)
--- NOTE | 2019-08-25 13:02 | NUR ---
report given to Linda CASTORNEA for david
--- NOTE | 2019-08-25 13:02 | NUR ---
RECEIVED TELEPHONE REPORT FROM ER NURSE
[2019-08-25] MEDS ORDERED: MORPHINE SULFATE INJ 2 MG/ML DISP.SYRIN IV PRN (13:30)
[2019-08-25] MEDS ORDERED: MAGNESIUM HYDROXIDE 30 ML UDC PO PRN (13:30)
[2019-08-25] MEDS ORDERED: Z GUARD REMEDY 2 OZ OINT TP PRN (13:30)
[2019-08-25] MEDS ORDERED: ACETAMINOPHEN 325 MG TABLET PO PRN (13:30)
[2019-08-25] MEDS ORDERED: MAG HYDROX/AL HYDROX/SIMETH 30 ML UDC PO PRN (13:30)
[2019-08-25] MEDS ORDERED: ONDANSETRON HCL/PF 4 MG/2 ML VIAL IVP PRN (13:30)
[2019-08-25] MEDS ORDERED: FEE PK DOSING 1 MIN EA MC ONE (14:12)
--- NOTE | 2019-08-25 14:30 | NUR ---
RECEIVED PT FROM ER. PT AMBULATORY WITH STEADY GAIT, ON ROOM AIR, RESPIRATIONS EVEN AND UNLABORED, NO SIGNS OF RESPIRATORY DISTRESS NOTED, ALERT AND ORIENTED X 4. HEAD TO TOE ASSESSMENT PERFORMED, SKIN INTACT. IV SITE ON RIGHT AC G18 INTACT, PATENT, WITH SALINE LOCK IN PLACE. IV SITE ON RIGHT FOREARM G18 INTACT, PATENT, WITH SALINE LOCK IN PLACE. PT STATES HE CAME TO THE ER DUE TO DIZZINESS AND WEAKNESS. REPORTS HE HAS BEEN SOB SINCE THIS MORNING. ALSO REPORTS TO HAVING DIARRHEA X 3 WEEKS AND LOOSING 10-20 LBS OVER THE PAST 3 MONTHS ACCOMPANIED BY POOR APPETITE. MALNUTRITION AND DIETARY CONSULT PLACED. BED IN LOW POSITION, LOCKED, CALL LIGHT WITHIN REACH. ALL BELONGINGS ACCOUNTED FOR.
--- NOTE | 2019-08-25 14:33 | NUR ---
wheeled patient via gurney accompanied by RN and emt in no distress.
[2019-08-25 16:00] VITALS: BP 120/81
[2019-08-25] MEDS: PIPERACILLIN /TAZOBACTAM 3.375 G in IV D5W 50 ML IV SCH ×2 (16:01→18:14)
--- NOTE | 2019-08-25 18:35 | NUR ---
PT COULD NOT TOLERATE POTASSIUM IV DUE TO PAIN. MD NOTIFIED AND AWARE. NO NEW ORDERS
[2019-08-25 20:00] VITALS: BP_SYST 129; BP_DIAS 76; BP_DIAS 79
--- NOTE | 2019-08-25 20:41 | NUR ---
Dr Fregoso was notified re; potassium level of 2.2 was given in ER 10 MEQ only, will give additional K 100meq with lidocaine also continue to give iv with 40 meq at 75ml /hr
[2019-08-25] MEDS ORDERED: Potassium Chloride 10 MEQ, LIDOCAINE HCL/PF 1% 1 ML in IV D5W 50 ML IV SCH (21:00)
[2019-08-25] MEDS: Potassium Chloride 10 MEQ, LIDOCAINE HCL/PF 1% 1 ML in IV D5W 50 ML IV SCH ×3 (21:10→23:00)
--- NOTE | 2019-08-25 21:13 | NUR ---
SOLE ROUGHER NOTES PT UNABLE TO CONTINUE POTASSIUM IV INFUSION D/T THE PAIN. VISUALLY IN PAIN WITH CRYING. GUARDING THE SITE. IV HELD. DISCUSSED MIDLINE IV ADMIN ROUTE OPTION. RISK/BENEFITS EXPLAINED. PT AGREED FOR K ADMIN VIA MIDLINE. ORDER OBTAINED, IV TEAM PAGED. WILL CONT TO MONITOR
[2019-08-25] MEDS: LOPERAMIDE HCL (2 MG CAP) 2 MG CAPSULE PO PRN (21:49)
[2019-08-25] MEDS: HYDROCODONE/APAP 5/325MG 1 EACH TABLET PO PRN (21:50)
[2019-08-26] VITALS (7 sets, daily range): BP systolic 114–143; BP diastolic 62–83
[2019-08-26] MEDS: PIPERACILLIN /TAZOBACTAM 3.375 G in IV D5W 50 ML IV SCH ×5 (00:30→23:25)
--- NOTE | 2019-08-26 01:00 | NUR ---
MACHINE FELLER NOTES MIDLINE IN PLACE, REMAINING/HELD K IS INFUSING, NO S/S OF PAIN NOTED. WILL CONT TO MONITOR
[2019-08-26] MEDS: Potassium Chloride 10 MEQ, LIDOCAINE HCL/PF 1% 1 ML in IV D5W 50 ML IV SCH ×12 (01:13→10:41)
[2019-08-26] MEDS: VANCOMYCIN 1 GM in IV D5W 250 ML IV SCH ×2 (02:21→15:18)
[2019-08-26 06:17] LABS: BASOPHILS % (AUTO) 0.6 % (0.0-2.0); EOSINOPHILS % (AUTO) 1.5 % (0.0-6.0); HEMATOCRIT 36 % (39-51); HEMOGLOBIN 11.7 g/dL (13.5-17.5); LYMPHOCYTES # (AUTO) 1.2 /CMM (0.8-4.8); LYMPHOCYTES % (AUTO) 15.7 % (20.0-44.0); MEAN CORPUSCULAR HGB CONC 32 g/dl (31.0-36.0); MEAN CORPUSCULAR VOLUME 83 fL (80-96); MONOCYTES # (AUTO) 0.9 /CMM (0.1-1.30); MONOCYTES % (AUTO) 11.3 % (2.0-12.0); NEUTROPHILS # (AUTO) 5.5 /CMM (1.8-8.9); NEUTROPHILS % (AUTO) 70.9 % (43.0-81.0); PLATELET COUNT (AUTO) 337 /CMM (150-450); RED BLOOD CELL COUNT(AUTO) 4.36 MIL/uL (4.5-6.0); WHITE BLOOD COUNT (AUTO) 7.7 K/uL (4.3-11.0)
[2019-08-26 06:47] LABS: CALCIUM, SERUM 8.2 mg/dL (8.5-10.1); CREATININE 0.9 mg/dL (0.6-1.3); MAGNESIUM 2.3 mg/dL (1.8-2.4)
[2019-08-26 06:59] LABS: POTASSIUM 2.6 mmol/L (3.5-5.1)
--- NOTE | 2019-08-26 07:40 | NUR ---
ms rn received on bed, awake,alert,oriented x4, not in any form of distross, respirations even and unlsbord,no sob noted.
[2019-08-26] MEDS: PANTOPRAZOLE 40 MG TABLET.DR PO SCH (08:29)
[2019-08-26] MEDS: FLUOXETINE HCL 20 MG CAPSULE PO SCH (08:29)
[2019-08-26] MEDS: AMLODIPINE BESYLATE 5 MG TABLET PO SCH (08:29)
[2019-08-26] MEDS: METOPROLOL SUCCINATE 25 MG TAB.SR.24H PO SCH (08:30)
[2019-08-26] MEDS: RAMIPRIL 5 MG CAPSULE PO SCH (08:30)
[2019-08-26] MEDS: LOPERAMIDE HCL (2 MG CAP) 2 MG CAPSULE PO PRN ×2 (08:36→17:41)
[2019-08-26] MEDS: Potassium Chloride 40 MEQ in IV NS 0.9% 1,000 ML IV PRN (08:37)
[2019-08-26] MEDS: HYDROCODONE/APAP 5/325MG 1 EACH TABLET PO PRN ×2 (08:51→19:20)
--- NOTE | 2019-08-26 09:10 | NUR ---
ms corrigan breakfast served,due meds given,tolerated well.
[2019-08-26] MEDS: ENSURE CLEAR 237 ML LIQUID (MIX BERRY) PO SCH ×2 (12:34→17:00)
--- NOTE | 2019-08-26 14:00 | NUR ---
ms rn check k level, dolores aware of result 3.1 w/ orders made and carried out.
--- NOTE | 2019-08-26 15:30 | NUR ---
ms rn was seen by dr. rodgers, no order at this time.
--- NOTE | 2019-08-26 16:50 | NUR ---
ms rn sent stool for ob.
--- NOTE | 2019-08-26 18:19 | NUR ---
ms rn on bed, no distress noted.
[2019-08-26] MEDS: POTASSIUM CL. PREMIX PERIPHER. 50 ML IV SCH ×4 (19:08→22:20)
--- NOTE | 2019-08-26 19:15 | NUR ---
RN OPENING NOTES RECEIVED PT ON BED AWAKE A/OX4 VERBAL ON RA TOLERATING WELL SPO2 99%, ON TELE MONITOR WITH READING SINUS RHYTHM 90'S WITH MURTAZA MIDLINE WITH ONGOING KCL @50ML/HR INFUSING WELL, WITH R/WRIST IV #18 PATENT AND FLUSHED, ON DROPLET ISOLATION TO R/O COVID, SAFETY MEASURE MAINTAINED WILL CONT TO MONITOR
[2019-08-27] VITALS: BP 117/78
[2019-08-27] MEDS: LOPERAMIDE HCL (2 MG CAP) 2 MG CAPSULE PO PRN (00:18)
[2019-08-27] MEDS: VANCOMYCIN 1 GM in IV D5W 250 ML IV SCH ×2 (01:32→14:23)
[2019-08-27] MEDS: Potassium Chloride 40 MEQ in IV NS 0.9% 1,000 ML IV PRN (03:21)
[2019-08-27 04:00] VITALS: BP 110/83
[2019-08-27] MEDS: PIPERACILLIN /TAZOBACTAM 3.375 G in IV D5W 50 ML IV SCH ×3 (05:36→18:06)
[2019-08-27] MEDS: HYDROCODONE/APAP 5/325MG 1 EACH TABLET PO PRN (05:45)
[2019-08-27 06:30] LABS: BASOPHILS % (AUTO) 0.6 % (0.0-2.0); EOSINOPHILS % (AUTO) 2.4 % (0.0-6.0); HEMATOCRIT 36 % (39-51); HEMOGLOBIN 11.4 g/dL (13.5-17.5); LYMPHOCYTES # (AUTO) 1.1 /CMM (0.8-4.8); LYMPHOCYTES % (AUTO) 20.5 % (20.0-44.0); MEAN CORPUSCULAR HGB CONC 32 g/dl (31.0-36.0); MEAN CORPUSCULAR VOLUME 84 fL (80-96); MONOCYTES # (AUTO) 0.6 /CMM (0.1-1.30); MONOCYTES % (AUTO) 10.5 % (2.0-12.0); NEUTROPHILS # (AUTO) 3.6 /CMM (1.8-8.9); PLATELET COUNT (AUTO) 335 /CMM (150-450); RED BLOOD CELL COUNT(AUTO) 4.27 MIL/uL (4.5-6.0); WHITE BLOOD COUNT (AUTO) 5.4 K/uL (4.3-11.0)
--- NOTE | 2019-08-27 06:55 | NUR ---
RN CLOSING NOTES PT ON BED ASLEEP EASY TO AWAKE NO SIGN AND SYMPTOMS OF RESPIRATORY DISTRESS SPO2 >95% NO SIGNIIFACANT CHANGES ON CONDITION NOTED, ALL NEEDS ATTENDED, WILL ENDORSED TO AM SHIFT NURSE
[2019-08-27 07:02] LABS: CALCIUM, SERUM 8.4 mg/dL (8.5-10.1); CREATININE 0.9 mg/dL (0.6-1.3); MAGNESIUM 2.1 mg/dL (1.8-2.4); PHOSPHORUS 2.9 mg/dL (2.5-4.9); POTASSIUM 3.1 mmol/L (3.5-5.1)
--- NOTE | 2019-08-27 07:15 | NUR ---
MARRIAGE AND FAMILY TEACHER NOTES PATIENT IN BED ALERT ORIENTED X 4. NO ACUTE DISTRESS NOTED. BREATHING UNLABORED. IV ACCESS PATENT AND INTACT, NO REDNESS NO SWELLING NOTED. SAFETY MEASURES IN PLACE, CALL LIGHT WITHIN EACH WILL CONTINUE TO MONITOR ACCORDINGLY.
[2019-08-27 08:00] VITALS: BP 124/83
[2019-08-27] MEDS: POTASSIUM CL. PREMIX PERIPHER. 50 ML IV SCH ×4 (08:32→11:51)
[2019-08-27] MEDS: FLUOXETINE HCL 20 MG CAPSULE PO SCH (08:32)
[2019-08-27] MEDS: RAMIPRIL 5 MG CAPSULE PO SCH (08:33)
[2019-08-27] MEDS: METOPROLOL SUCCINATE 25 MG TAB.SR.24H PO SCH (08:33)
[2019-08-27] MEDS: AMLODIPINE BESYLATE 5 MG TABLET PO SCH (08:33)
[2019-08-27] MEDS: PANTOPRAZOLE 40 MG TABLET.DR PO SCH (08:34)
[2019-08-27] MEDS: ENSURE CLEAR 237 ML LIQUID (MIX BERRY) PO SCH ×3 (08:34→17:00)
[2019-08-27] MEDS ORDERED: POTA10TA PO (09:50)
[2019-08-27] MEDS ORDERED: METR500T PO (09:50)
--- NOTE | 2019-08-27 11:35 | NUR ---
RELATIONSHIP MGR NOTES RECEIVED RESULT PATIENT C DIFF POSITIVE , RELAYED TO CARD FOLDER LEIGHTON BEVERLY WITH NO NEW ORDERS MADE AT THIS TIME. C DIFF ISOLATION PRECAUTION IN PLACE.
[2019-08-27 12:00] VITALS: BP 120/81
[2019-08-27] MEDS ORDERED: VANC125C11 PO (15:47)
[2019-08-27 16:00] VITALS: BP 122/78
--- NOTE | 2019-08-27 17:06 | NUR ---
COVID STILL PENDING MD NICHOLS,CM TO SET UP AMBULANCE R/T POSSIBLE COVID.
[2019-08-27] MEDS ORDERED: VANCOMYCIN HCL 125 MG/2.5 ML ORAL.SUSP PO SCH (18:00)
--- NOTE | 2019-08-27 18:53 | NUR ---
ELECTRICAL APPLIANCE PREPARER NOTES PATIENT IN BED ALERT ORIENTED X 4. NO ACUTE DISTRESS NOTED. BREATHING UNLABORED. IV ACCESS PATENT AND INTACT, NO REDNESS NO SWELLING NOTED. NEEDS ATTENDED AND ANTICIPATED. SAFETY MEASURES IN PLACE. NEEDS ATTENDED AND ANTICIPATED. KEPT CLEAN DRY AND COMFORTABLE. CALL LIGHT WITHIN REACH . PATIENT FOR DISCHARGE WILL ENDORSE TO NIGHT NURSE FOR CONTINUITY OF CARE AND DISCHARGE.
--- NOTE | 2019-08-27 19:15 | NUR ---
RN OPENING NOTES: RECEIVED PT A/OX4; PATIENT IN BED RESTING COMFORTABLY. PATIENT IN NO S/SX OF ACUTE DISTRESS AT THIS TIME. NO SOB NOTED. PATIENT'S BREATHING IS EVEN AND UNLABORED. PATIENT IS ON RA; TOLERATING WELL.VITAL SIGNS WNL. NOTED IV SITE ON R UA MIDLINE AND R WRIST BOTH PATENT IN INTACT,NO S/S OF INFECTION OR INFILTRATION. PT IS AMBULATORY TOLERATED. PENDING DC @830PM. SAFETY MEASURES HAVE BEEN PROVIDED AND IMPLEMENTED. PATIENT BED ALARM IS ON. HEAD OF BED ELEVATED. BED IS LOCKED, IN LOWEST POSITION AND SIDE RAILS UP. CALL LIGHT WITHIN REACH OF THE PATIENT. ISOLATION PRECAUTIONS IN PLACE. WILL CONTINUE TO MONITOR AND REASSESS FOR ANY CHANGES.
--- NOTE | 2019-08-27 21:05 | NUR ---
HELP DESK INTERN NOTES PATIENT DISCHARGE HOME WITH STABLE VITAL SIGNS, ALERT ORIENTED X 4, NO ACUTE DISTRESS NOTED, BREATHING UNLABORED. DISCHARGE INSTRUCTIONS GIVEN TO THE PATIENT INCLUDING HEALTH TEACHING FOR COVID 19 ISOLATION, ISOLATION PRECAUTIONS/MEASURES AND INFECTION CONTROL , NEW PRESCRIPTIONS AND FOLLOW UP WITH PRIMARY DOCTOR,PATIENT VERBALIZED UNDERSTANDING. ALL BELONGINGS ACCOUNTED FOR. IV ACCESS REMOVED, NO REDNESS, NO BLEEDING, NO SWELLING NOTED. PICKED UP VIA AMBULANCE IN A GURNEY ACCOMPANIED BY 2 EMT PERSONNEL IN STABLE CONDITION.
[2019-08-28] MEDS ORDERED: POTA10CA43 PO (11:28)
== END 2019-08-27 21:04 | disposition home or self-care (01) | DRG 248 ==
LOC: ER 10:35 → TELE1 12:54
PROVIDERS: ADMIT Internal Medicine; ATTEND Nurse Practitioner Acute Care
DX: A04.72 Enterocolitis due to Clostridium difficile, not specified as recurrent (principal); E43 Unspecified severe protein-calorie malnutrition; E87.6 Hypokalemia; I10 Essential (primary) hypertension; I25.10 Atherosclerotic heart disease of native coronary artery without angina pectoris; Z85.048 Personal history of other malignant neoplasm of rectum, rectosigmoid junction, and anus; Z95.5 Presence of coronary angioplasty implant and graft; D63.8 Anemia in other chronic diseases classified elsewhere; Z68.23 Body mass index [BMI] 23.0-23.9, adult; E87.3 Alkalosis; F32.9 Major depressive disorder, single episode, unspecified; F41.9 Anxiety disorder, unspecified; K21.9 Gastro-esophageal reflux disease without esophagitis; Z93.2 Ileostomy status; E88.09 Other disorders of plasma-protein metabolism, not elsewhere classified; K92.2 Gastrointestinal hemorrhage, unspecified; Z90.49 Acquired absence of other specified parts of digestive tract; K44.9 Diaphragmatic hernia without obstruction or gangrene; K65.9 Peritonitis, unspecified; K51.00 Ulcerative (chronic) pancolitis without complications
CPT/HCPCS: 36410; 36415; 71045-TC; 80048-TC; 80076-TC; 80202-TC; 83735-TC; 83880; 84100-TC; 84132-TC; 84484-TC; 85025-TC; 85730-TC; 86850-TC; 87081-TC; G0378; J2543; J3370; J3480; J3490; J7030; J7040; J7050; J7060; U0003-CS

== ENCOUNTER 2021-03-25 12:24 | Emergency (ER) | payer MEDICARE, OTHER ==
[~2021-03-25] VITALS: Ht 175.3 cm; Wt 91.6 kg
[~2021-03-25 12:24] MED LIST changes: +AMLO-212 MT; +ATOR20TA PO; +METR500T PO; +POTA10CA43 PO; +POTA10TA PO; +VANC125C11 PO
[2021-03-25 12:40] VITALS: BP 113/56
--- NOTE | 2021-03-25 12:50 | NUR ---
Patient discharged to home in stable condition. Written and verbal after care instructions given. Patient verbalizes understanding of instruction.
== END 2021-03-25 15:01 | disposition home or self-care (01) ==
LOC: ER 12:30
DX: R09.89 Other specified symptoms and signs involving the circulatory and respiratory systems (principal); F41.9 Anxiety disorder, unspecified; F32.9 Major depressive disorder, single episode, unspecified; Z95.5 Presence of coronary angioplasty implant and graft; Z85.048 Personal history of other malignant neoplasm of rectum, rectosigmoid junction, and anus; Z90.49 Acquired absence of other specified parts of digestive tract; Z79.810 Long term (current) use of selective estrogen receptor modulators (SERMs); Z79.899 Other long term (current) drug therapy; Z60.2 Problems related to living alone

== ENCOUNTER 2021-04-26 19:34 | Inpatient (IN) | payer MEDICARE, OTHER ==
[~2021-04-26] VITALS: Ht 182.9 cm; Wt 89.5 kg
[2021-04-26] MEDS ORDERED: IV NS 0.9% 1,000 ML BAG IV ONE (20:00)
[2021-04-26] MEDS ORDERED: ONDANSETRON HCL/PF 4 MG/2 ML VIAL IVP ONE (20:00)
[2021-04-26] MEDS ORDERED: MORPHINE SULFATE INJ 2 MG/ML DISP.SYRIN IV ONE (20:00)
[2021-04-26] MEDS ORDERED: ONDANSETRON HCL/PF 4 MG/2 ML VIAL ONE (20:14)
[2021-04-26] MEDS ORDERED: MORPHINE SULFATE INJ 4 MG/ML DISP.SYRIN ONE (20:15)
--- NOTE | 2021-04-26 20:15 | NUR ---
URINE SAMPLE SENT TO LAB
--- NOTE | 2021-04-26 20:25 | NUR ---
IV CANNULA G20 INSERTED, FLUSHED WITH NS. BLOOD SPECIMEN GIVEN TO WELDER SETTER ELECTRON BEAM MACHINE.
--- NOTE | 2021-04-26 20:25 | NUR ---
BIBA THIS 65 YO MALE PATIENT PER GURDOROTHY WITH CC OF SEVERE ABDOMINAL PAIN (HYPOGASTRIC AREA) IT INTENSIFIES 3PM. PATIENT POSITIONED COMFORTABLY ON ER BED. VITALS TAKEN.
--- NOTE | 2021-04-26 20:27 | NUR ---
PT WHEELED TO RADIOLOGY DEPT FOR CT ABDOMEN WITH AND WITHOUT CONTRAST.
[2021-04-26 20:43] LABS: CALCIUM, SERUM 9.2 mg/dL (8.5-10.1); CREATININE 1.2 mg/dL (0.6-1.3); POTASSIUM 3.8 mmol/L (3.5-5.1)
[2021-04-26 20:49] LABS: ALBUMIN 3.2 g/dL (3.4-5.0); BILIRUBIN,DIRECT 0.2 mg/dL (0.0-0.2); BILIRUBIN,TOTAL 0.4 mg/dL (0.2-1.0); TOTAL PROTEIN, SERUM 7.5 g/dL (6.4-8.2)
[2021-04-26 20:57] LABS: BASOPHILS # (AUTO) 0.1 K/uL (0.0-0.2); BASOPHILS % (AUTO) 1.1 % (0.0-2.0); EOSINOPHILS % (AUTO) 1.6 % (0.0-6.0); HEMATOCRIT 42 % (39-51); HEMOGLOBIN 13.8 g/dL (13.5-17.5); LYMPHOCYTES # (AUTO) 1.8 K/uL (0.8-4.8); LYMPHOCYTES % (AUTO) 15.5 % (20.0-44.0); MEAN CORPUSCULAR HGB CONC 33 g/dl (31.0-36.0); MEAN CORPUSCULAR VOLUME 83 fL (80-96); MONOCYTES # (AUTO) 0.8 K/uL (0.1-1.30); NEUTROPHILS # (AUTO) 8.7 K/uL (1.8-8.9); NEUTROPHILS % (AUTO) 74.8 % (43.0-81.0); PLATELET COUNT (AUTO) 417 K/uL (150-450); RED BLOOD CELL COUNT(AUTO) 5.04 MIL/uL (4.5-6.0); WHITE BLOOD COUNT (AUTO) 11.6 K/uL (4.3-11.0)
[2021-04-26 21:13] LABS: BILIRUBIN,URINE NEGATIVE (NEGATIVE); COLOR,URINE YELLOW (YELLOW); LEUKOCYTE ESTERASE ,URINE NEGATIVE (NEGATIVE); NITRITE, URINE NEGATIVE (NEGATIVE); PH,URINE 5.5 (5.0-8.0); PROTEIN,URINE NEGATIVE (NEGATIVE); UGLUCOSE NEGATIVE (NEGATIVE); UROBILINOGEN,URINE 0.2 EU/dL (0.2)
[2021-04-26] MEDS ORDERED: HYDROMORPHONE 1 MG/1 ML DISP.SYRIN ONE (21:46)
[2021-04-26] MEDS ORDERED: HYDROMORPHONE 1 MG/1 ML DISP.SYRIN IV ONE ×2 (22:00→22:30)
--- NOTE | 2021-04-26 22:20 | NUR ---
DR SANFORD MADE AWARE THAT PATIENT IS STILL IN PAIN WITH SCALE OF 10/10 EVEN AFTER MORPHINE 4MG AND DILAUDID 1MG MEDICATION.
[2021-04-26] MEDS ORDERED: KETOROLAC TROMETHAMINE INJ 30 MG/ML VIAL IV ONE (22:30)
[2021-04-26] MEDS ORDERED: KETOROLAC TROMETHAMINE INJ 30 MG/ML VIAL ONE (22:35)
--- NOTE | 2021-04-26 22:38 | NUR ---
EKG DONE AT BEDSIDE
--- NOTE | 2021-04-26 22:39 | NUR ---
TORADOL 30MG IV PUSH GIVEN AT LEFT AC G20 FOR PAIN SCALE 10/10
--- NOTE | 2021-04-26 22:40 | NUR ---
COVID ANTIGEN SWAB DONE AND SENT TO LAB
--- NOTE | 2021-04-26 22:43 | NUR ---
MRSA SWAB COLLECTED AND SENT TO LAB. PATIENT'S BELONGINGS LIST DONE.
--- NOTE | 2021-04-26 23:11 | NUR ---
US TECH AT BED SIDE
[2021-04-27] MEDS ORDERED: PIPERACILLIN /TAZOBACTAM 3.375 G in IV D5W 50 ML IV ONE (01:30)
[2021-04-27] MEDS ORDERED: PIPERACILLIN /TAZOBACTAM 3.375 G VIAL IV ONE (01:46)
[2021-04-27] MEDS ORDERED: HYDROMORPHONE 1 MG/1 ML DISP.SYRIN ONE (01:46)
[2021-04-27] MEDS ORDERED: IV D5/0.45 NACL 1,000 ML IV PRN (02:00)
[2021-04-27] MEDS ORDERED: ALPRAZOLAM 0.5 MG TABLET PO PRN (02:00)
[2021-04-27] MEDS ORDERED: PROCHLORPERAZINE MALEATE 10 MG TABLET PO PRN (02:00)
[2021-04-27] MEDS ORDERED: ACETAMINOPHEN 325 MG TABLET PO PRN (02:00)
[2021-04-27] MEDS ORDERED: MAG HYDROX/AL HYDROX/SIMETH 30 ML UDC PO PRN (02:00)
[2021-04-27] MEDS ORDERED: MORPHINE SULFATE INJ 2 MG/ML DISP.SYRIN IV PRN (02:00)
[2021-04-27] MEDS ORDERED: ONDANSETRON HCL/PF 4 MG/2 ML VIAL IVP PRN (02:00)
[2021-04-27] MEDS ORDERED: Z GUARD REMEDY 4 OZ OINT TP PRN (02:00)
[2021-04-27] MEDS ORDERED: HYDROMORPHONE 1 MG/1 ML DISP.SYRIN IV ONE (02:00)
[2021-04-27] MEDS ORDERED: MAGNESIUM HYDROXIDE 30 ML UDC PO PRN (02:00)
[2021-04-27] MEDS ORDERED: ONDANSETRON 4 MG TAB.RAPDIS PO PRN (03:30)
[2021-04-27] MEDS ORDERED: VANCOMYCIN 1.5 GM in IV D5W 500ml IV ONE (04:00)
[2021-04-27] MEDS ORDERED: VANCOMYCIN 1 GM VIAL ONE (04:07)
[2021-04-27 04:44] LABS: BASOPHILS % (AUTO) 0.2 % (0.0-2.0); EOSINOPHILS % (AUTO) 0.9 % (0.0-6.0); HEMATOCRIT 41 % (39-51); HEMOGLOBIN 13.4 g/dL (13.5-17.5); LYMPHOCYTES # (AUTO) 1.5 K/uL (0.8-4.8); LYMPHOCYTES % (AUTO) 14.7 % (20.0-44.0); MEAN CORPUSCULAR HGB CONC 33 g/dl (31.0-36.0); MEAN CORPUSCULAR VOLUME 83 fL (80-96); MONOCYTES % (AUTO) 10.1 % (2.0-12.0); NEUTROPHILS # (AUTO) 7.6 K/uL (1.8-8.9); NEUTROPHILS % (AUTO) 74.1 % (43.0-81.0); PLATELET COUNT (AUTO) 384 K/uL (150-450); RED BLOOD CELL COUNT(AUTO) 4.88 MIL/uL (4.5-6.0); WHITE BLOOD COUNT (AUTO) 10.3 K/uL (4.3-11.0)
[2021-04-27 05:01] LABS: CALCIUM, SERUM 8.6 mg/dL (8.5-10.1); CREATININE 1.2 mg/dL (0.6-1.3); POTASSIUM 4.4 mmol/L (3.5-5.1)
[2021-04-27 05:07] LABS: BILIRUBIN,DIRECT 0.1 mg/dL (0.0-0.2); BILIRUBIN,TOTAL 0.6 mg/dL (0.2-1.0); MAGNESIUM 1.9 mg/dL (1.8-2.4); PHOSPHORUS 3.8 mg/dL (2.5-4.9); TOTAL PROTEIN, SERUM 7.2 g/dL (6.4-8.2)
[2021-04-27 05:15] LABS: THYROID STIMULATING HORMONE 2.112 uIU/mL (0.358-3.74)
--- NOTE | 2021-04-27 05:44 | NUR ---
314-2 Addendum: 04/27/21 at 0606 by HOMELDER 314-2 AFTER CHANGE OF SHIFT
--- NOTE | 2021-04-27 06:50 | NUR ---
REPORT GIVEN TO DIDI CASTORENA FOR CONTINUATION OF CARE.
--- NOTE | 2021-04-27 07:39 | NUR ---
TRANSFERRED TO 314 IN STABLE CONDITION
--- NOTE | 2021-04-27 07:45 | NUR ---
RN OPENING NOTES RECEIVED PATIENT VIA [facility] AT 0745 AM FROM ER. PATIENT ALERT AND ORIENTED TIMES 4. NO PAIN NOTED. NO RESPIRATORY DISTRESS NOTED. IV SITE ON THE LEFT FOREARM INTACT. ABDOMINAL SURGERY SITES NOTED HE STATED IS FROM A WEEK AGO HERNIA SURGERY SITE. NO SOB NOTED. BREATHS EVEN AND UNLABORED. BED LOCKED IN LOWEST POSITION . CALL LIGHT AND TABLE WITHIN REACH. WILL CONTINUE TO MONITOR.
[2021-04-27 08:00] VITALS: BP 153/95
[2021-04-27] MEDS ORDERED: PIPERACILLIN /TAZOBACTAM 3.375 G in IV D5W 50 ML IV SCH (08:00)
[2021-04-27] MEDS: ASPIRIN EC 81 MG TABLET.DR PO SCH (08:20)
[2021-04-27] MEDS: RAMIPRIL 5 MG CAPSULE PO SCH (08:21)
[2021-04-27] MEDS: AMLODIPINE BESYLATE 5 MG TABLET PO SCH (08:22)
[2021-04-27] MEDS: POTASSIUM CHLORIDE 10 MEQ TABLET.SA PO SCH (08:22)
[2021-04-27] MEDS: FLUOXETINE HCL 20 MG CAPSULE PO SCH (08:23)
[2021-04-27] MEDS: FERROUS SULFATE (325 MG) 325 MG/TAB TABLET PO SCH (08:23)
[2021-04-27] MEDS: METOPROLOL SUCCINATE 25 MG TAB.SR.24H PO SCH (08:23)
[2021-04-27] MEDS ORDERED: PANTOPRAZOLE 40 MG VIAL IV SCH (09:00)
[2021-04-27] MEDS: PIPERACILLIN /TAZOBACTAM 3.375 G in IV D5W 100 ML IV SCH ×2 (10:17→18:37)
[2021-04-27] MEDS: HYDROCODONE/APAP 5/325MG TABLET PO PRN ×2 (10:42→18:40)
--- NOTE | 2021-04-27 15:00 | NUR ---
RN NOTES PER TALKS DURING ADMISSION QUESTIONS PATIENT STATED HE WILL KILL HIMSELF IF GOES HOME. AND ALSO STATED HE HAD ONE TIME ATTENTION TO HARM THE ROOM MATE. INFORMED DR. JOHN, NEW ORDERS OF SITTER AND PSYCHE CONSULT GIVEN.
[2021-04-27] MEDS: VANCOMYCIN 1 GM in IV D5W 250 ML IV SCH (16:53)
--- NOTE | 2021-04-27 19:00 | NUR ---
RN CLOSING NOTES PATIENT ALERT AND ORIENTED TIMES 4. NO PAIN NOTED. NO RESPIRATORY DISTRESS NOTED. IV SITE ON THE LEFT FOREARM INTACT. NO SOB NOTED. BREATHS EVEN AND UNLABORED.ALL DUE MEDS GIVEN ORDERED. BED LOCKED IN LOWEST POSITION . CALL LIGHT AND TABLE WITHIN REACH. WILL ENDORSE FOR HUMAIRA.
--- NOTE | 2021-04-27 19:30 | NUR ---
RN opening notes Received Pt in bed watching TV comfortably with a sitter at the bedside. Pt is alert and orientedX4. On room air. No SOB. No S/S of distress noted. IV site at L upper arm# 18 is clean, intact and infusing well D5 1/2NS@ 75 ml/hr. Pt denies SI/HI at this time. Noted abdominal surgery is clean,dry, intact and healing. safety precautions is maintained. Bed at low position, brakes locked, side rails upX2, call light is within reach, sitter at the bedside. Will continue to monitor.
[2021-04-27 20:00] VITALS: BP 134/75
[2021-04-27] MEDS ORDERED: ATORVASTATIN 10 MG TABLET PO SCH (22:00)
[2021-04-28] MEDS: HYDROCODONE/APAP 5/325MG TABLET PO PRN (00:10)
[2021-04-28] MEDS: PIPERACILLIN /TAZOBACTAM 3.375 G in IV D5W 100 ML IV SCH ×2 (01:14→10:00)
[2021-04-28] MEDS: VANCOMYCIN 1 GM in IV D5W 250 ML IV SCH (05:20)
[2021-04-28 06:32] LABS: BASOPHILS # (AUTO) 0.1 K/uL (0.0-0.2); EOSINOPHILS % (AUTO) 2.8 % (0.0-6.0); HEMATOCRIT 36 % (39-51); LYMPHOCYTES # (AUTO) 1.2 K/uL (0.8-4.8); LYMPHOCYTES % (AUTO) 14.8 % (20.0-44.0); MEAN CORPUSCULAR HGB CONC 33 g/dl (31.0-36.0); MEAN CORPUSCULAR VOLUME 83 fL (80-96); MONOCYTES # (AUTO) 0.8 K/uL (0.1-1.30); MONOCYTES % (AUTO) 10.2 % (2.0-12.0); NEUTROPHILS # (AUTO) 5.8 K/uL (1.8-8.9); NEUTROPHILS % (AUTO) 71.2 % (43.0-81.0); PLATELET COUNT (AUTO) 331 K/uL (150-450); RED BLOOD CELL COUNT(AUTO) 4.35 MIL/uL (4.5-6.0); WHITE BLOOD COUNT (AUTO) 8.1 K/uL (4.3-11.0)
--- NOTE | 2021-04-28 06:40 | NUR ---
RN closing notes Pt is resting in bed comfortably. Pt is alert and orientedX4. On room air. No SOB. No S/S of distress noted. VS is stable. IV site at L upper arm# 18 is clean, intact and infusing well D5 1/2NS@ 75 ml/hr. Kept Pt clean, dry and comfortable. safety precautions is maintained. Bed at low position, brakes locked, side rails upX2, call light is within reach, sitter at the bedside. Will endorse to am nurse for HUMAIRA.
--- NOTE | 2021-04-28 06:51 | NUR ---
RN notes Pt is feeling anxious and requesting only Xanax. Administered xanax 0.5 mg/po/prn as ordered. Safety precautions is maintained. Will continue to monitor.
--- NOTE | 2021-04-28 07:00 | NUR ---
MS RN OPENING NOTES RECEIVED PATIENT IN BED RESTING COMFORTABLY A/O X 4. PATIENT ON ROOM AIR WITH NO SOB OR RESPIRATORY DISTRESS AT THIS TIME. L UA # 18 G SL PATENT AND FLUSHING WELL. SAFETY PRECAUTIONS IN PLACE; BED IN LOWEST LOCKED POSITION, SIDE RAILS UP X 2, CALL LIGHT WITHIN REACH, SITTER AT BEDSIDE. WILL CONTINUE TO MONITOR.
[2021-04-28 07:04] LABS: CALCIUM, SERUM 8.4 mg/dL (8.5-10.1); CREATININE 1.3 mg/dL (0.6-1.3); MAGNESIUM 1.9 mg/dL (1.8-2.4); PHOSPHORUS 3.7 mg/dL (2.5-4.9); POTASSIUM 3.7 mmol/L (3.5-5.1)
[2021-04-28 09:00] VITALS: BP 146/96
[2021-04-28] MEDS: FLUOXETINE HCL 20 MG CAPSULE PO SCH ×2 (09:00→09:10)
[2021-04-28] MEDS: RAMIPRIL 5 MG CAPSULE PO SCH ×2 (09:00→09:30)
[2021-04-28] MEDS: POTASSIUM CHLORIDE 10 MEQ TABLET.SA PO SCH ×2 (09:00→09:13)
[2021-04-28] MEDS: AMLODIPINE BESYLATE 5 MG TABLET PO SCH ×2 (09:00→09:29)
[2021-04-28] MEDS: METOPROLOL SUCCINATE 25 MG TAB.SR.24H PO SCH ×2 (09:00→09:29)
[2021-04-28] MEDS: FERROUS SULFATE (325 MG) 325 MG/TAB TABLET PO SCH ×2 (09:00→09:13)
[2021-04-28] MEDS: ASPIRIN EC 81 MG TABLET.DR PO SCH ×2 (09:00→09:11)
--- NOTE | 2021-04-28 10:29 | NUR ---
MS RN NOTES PATIENT VERBALIZED DESIRE TO LEAVE HOSPITAL AMA THIS MORNING. EXPLAINED THE RISKS AND CONSEQUENCES OF LEAVING THE HOSPITAL TO PATIENT, BENEFITS OF CONTINUED TREATMENT AND HOSPITALIZATION, AND ALTERNATIVES TO CONTINUED TREATMENT AND HOSPITALIZATION. PATENT WAS FULLY ALERT AND ORIENTED X 4 AND ABLE TO MAKE INFORMED DECISIONS REGARDING HIS HEALTH. PATIENT UNDERSTOOD THE RISKS, CONSEQUENCES AND ALTERNATIVES TO CONTINUED HOSPITALIZATION AND TREATMENT AND SIGNED THE AGAINST MEDICAL ADVICE FORM TO LEAVE THE HOSPITAL WITHOUT DURESS AND OF HIS OWN FREE WILL. MD BEE SPOKE WITH PATIENT AND PATIENT REITERATED DESIRE TO LEAVE AMA. IV ACCESS ON L AC REMOVED AND ARM BANDS REMOVED. ALL BELONGINGS ACCOUNTED FOR AND PATIENT SIGNED BELONGING FORM. PATIENT LEFT UNIT WITH CHINA VELAZCO AT 1030.
[2021-04-29] MEDS ORDERED: PANTOPRAZOLE 40 MG TABLET.DR PO SCH (07:30)
== END 2021-04-28 11:01 | disposition left against medical advice (07) | DRG 690 ==
LOC: ER 19:36 → TRANSITION 04-27 02:50 → MED 04-27 05:45
PROVIDERS: ADMIT Student in an Organized Health Care Education/Training Program; ATTEND Student in an Organized Health Care Education/Training Program
DX: N30.90 Cystitis, unspecified without hematuria (principal); R45.851 Suicidal ideations; I25.10 Atherosclerotic heart disease of native coronary artery without angina pectoris; Z20.822 Contact with and (suspected) exposure to COVID-19; F41.9 Anxiety disorder, unspecified; F32.A Depression, unspecified; Z93.3 Colostomy status; Z85.048 Personal history of other malignant neoplasm of rectum, rectosigmoid junction, and anus; E78.5 Hyperlipidemia, unspecified; I10 Essential (primary) hypertension; Z95.5 Presence of coronary angioplasty implant and graft; Z90.49 Acquired absence of other specified parts of digestive tract; D72.829 Elevated white blood cell count, unspecified; Z98.890 Other specified postprocedural states
CPT/HCPCS: 36415; 76705-TC; 80048-TC; 80053-TC; 80076-TC; 80202-TC; 82247-TC; 82248-TC; 83690-TC; 83735-TC; 84100-TC; 84443-TC; 85025-TC; 85730-TC; 87040-TC; 87081-TC; 87086-TC; C9113; C9803; G0378; J1170; J1885; J2270; J2405; J2543; J3370; J3490; J7060; Q0162; Q0164

== ENCOUNTER 2021-12-07 10:15 | Emergency (ER) | payer MEDICARE, OTHER ==
[~2021-12-07] VITALS: Ht 185.4 cm; Wt 88.5 kg
--- NOTE | 2021-12-07 10:40 | NUR ---
PATIENT CAME IN TO THE ER C/O SUDDEN ONSET OF SOB AT A CLINIC,"LIKE SOMETHING IS STUCK IN MY THROAT". ON ROOM AIR, BREATHING NORMALLY ANDUNLABORED. CONNECTED TO THE MONITOR AND PULSE OX. KEPT COMFORTABLE, WILL CONTINUE TO MONITOR ACCORDINGLY. AMBULAATORY WITH STEADY GAIT.
[2021-12-07] MEDS ORDERED: ONDANSETRON HCL/PF 4 MG/2 ML VIAL ONE (10:43)
[2021-12-07] MEDS ORDERED: LORAZEPAM INJ 2 MG/ML VIAL ONE (10:43)
[2021-12-07] MEDS ORDERED: ATOR10TA PO (10:45)
[2021-12-07] MEDS ORDERED: LANS30CA56 PO (10:45)
[2021-12-07] MEDS ORDERED: ONDANSETRON HCL/PF 4 MG/2 ML VIAL IVP ONE (11:00)
[2021-12-07] MEDS ORDERED: IV NS 0.9% 1,000 ML BAG IV ONE (11:00)
[2021-12-07] MEDS ORDERED: LORAZEPAM INJ 2 MG/ML VIAL IV ONE (11:00)
[2021-12-07 11:03] LABS: BASOPHILS % (AUTO) 0.5 % (0.0-2.0); EOSINOPHILS % (AUTO) 0.6 % (0.0-6.0); HEMATOCRIT 46 % (39-51); HEMOGLOBIN 15.3 g/dL (13.5-17.5); LYMPHOCYTES # (AUTO) 2.6 K/uL (0.8-4.8); LYMPHOCYTES % (AUTO) 28.8 % (20.0-44.0); MEAN CORPUSCULAR HGB CONC 33 g/dl (31.0-36.0); MEAN CORPUSCULAR VOLUME 87 fL (80-96); MONOCYTES # (AUTO) 0.7 K/uL (0.1-1.30); MONOCYTES % (AUTO) 7.6 % (2.0-12.0); NEUTROPHILS # (AUTO) 5.7 K/uL (1.8-8.9); NEUTROPHILS % (AUTO) 62.5 % (43.0-81.0); PLATELET COUNT (AUTO) 304 K/uL (150-450); RED BLOOD CELL COUNT(AUTO) 5.33 MIL/uL (4.5-6.0); WHITE BLOOD COUNT (AUTO) 9.2 K/uL (4.3-11.0)
[2021-12-07] MEDS ORDERED: IOHEXOL-350 100 ML VIAL IV ONE (11:09)
[2021-12-07] MEDS ORDERED: IV NS 0.9% 250 ML IV ONE (11:09)
[2021-12-07 11:16] LABS: CALCIUM, SERUM 9.3 mg/dL (8.5-10.1); CREATININE 1.3 mg/dL (0.6-1.3); POTASSIUM 4.1 mmol/L (3.5-5.1)
[2021-12-07 12:23] VITALS: BP 137/94
--- NOTE | 2021-12-07 12:23 | NUR ---
Patient discharged to home in stable condition. Written and verbal after care instructions given. Patient verbalizes understanding of instruction.IV removed. Catheter intact and site benign. Pressure and 4x4 applied to site. No bleeding noted.
== END 2021-12-07 12:24 | disposition home or self-care (01) ==
LOC: ER 10:28
DX: R22.1 Localized swelling, mass and lump, neck (principal); I10 Essential (primary) hypertension; Z90.49 Acquired absence of other specified parts of digestive tract; Z60.2 Problems related to living alone; Z79.899 Other long term (current) drug therapy
CPT/HCPCS: 99285; 96374; 70491; 71045; 96361; 96375; 93005 ×2; 85025; 80048; 36415; J2060; J2405; J7030; J7050; Q9967